=== PATIENT | female | born 1995 | race Native Hawaiian/Other Pacific Islander ===

== ENCOUNTER 2019-02-07 21:46 | Emergency (ER) | payer OTHER ==
[~2019-02-07] VITALS: Ht 165.1 cm; Wt 90.7 kg
--- NOTE | 2019-02-07 21:59 | NUR ---
Pt to ER hallway bed. Siderails up.
[2019-02-07 22:00] VITALS: BP_SYST 142
--- NOTE | 2019-02-07 22:00 | NUR ---
Pt is alert and oriented. Pt C/O small anxiety attack that patient states is now resolved. No other complaints noted at this time. No signs of SOB or acute distress noted. VSS. Will continue to monitor.
--- NOTE | 2019-02-07 22:05 | NUR ---
ER MD HUSSEIN AT BEDSIDE EXAMINING PATIENT.
[2019-02-07] MEDS ORDERED: LORazepam 1 MG TABLET PO ONE (22:15)
--- NOTE | 2019-02-07 23:05 | NUR ---
Pt stable, waiting for family member to transport home.
[2019-02-07 23:45] VITALS: BP_SYST 133
--- NOTE | 2019-02-07 23:45 | NUR ---
Patient given written and verbal discharge instructions and verbalizes understanding. ER MD Thomas discussed with patient the results and treatment provided. Patient in stable condition. ID arm band removed. Rx of Ativan given. Patient educated on pain management and to follow up with PMD. Pain Scale 0/10. Opportunity for questions provided and answered. Medication side effect fact sheet provided.
== END 2019-02-07 23:45 | disposition home or self-care (01) ==
LOC: SED 21:46
DX: F41.9 Anxiety disorder, unspecified (principal)
CPT/HCPCS: 81025; 99284